=== PATIENT | male | born 1985 | race African-American/Black ===

== ENCOUNTER 2016-08-21 15:56 | Emergency (ER) | payer SELFPAY ==
[~2016-08-21] VITALS: Ht 170.2 cm; Wt 77.1 kg
[2016-08-21] MEDS ORDERED: Norco 5mg/325mg tab PO ONE (16:15)
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
[2016-08-21] MEDS ORDERED: IBUPROFEN600 MG ORAL (18:04)
[2016-08-21] MEDS ORDERED: TRAMADOL HCL50 MG ORAL (18:04)
[2016-08-21 18:31] VITALS: BP 115/77
--- NOTE | 2016-08-22 08:54 | Diagnostic Imaging Report ---
Indication: TRAUMA, pain Technique: Spiral acquisitions obtained through the cervical spine. No IV contrast utilized. Multiplanar reconstructions were generated. Total dose length product 321 mGycm. CTDIvol(s) 50 mGy Comparison: None Findings: There is straightening of the normal cervical lordosis. Otherwise normal bony alignment. Vertebral body heights and disc spaces are preserved. No prevertebral soft tissue swelling. No acute fractures. There is unusual finding of an ossification posterior to the tip of the odontoid, within or deep to the posterior atlantoaxial ligament. This is possibly an ununited ossification center. No significant disc bulge or protrusion, spinal stenosis, or neural foraminal stenosis is evident. The included extraspinal soft tissues are unremarkable. 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 Bailey The CT scanner at [facility] is accredited by the [employer] and the scans are performed using protocols designed to limit radiation exposure to as low as reasonably achievable to attain images of sufficient resolution adequate for diagnostic evaluation.
--- NOTE | 2016-08-22 10:22 | Diagnostic Imaging Report ---
Indication: TRAUMA Technique: 3 views of the left shoulder Comparison: none Findings: Rounded ossific densities are seen the expected region of the infraglenoid bursa. No acute fractures. No dislocations. The joint spaces are preserved. 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
--- NOTE | 2016-08-22 11:00 | Diagnostic Imaging Report ---
Indication: TRAUMA Technique: 3 views of the right shoulder Comparison: none Findings: No acute fractures. No dislocations. There is mild degenerative disc narrowing and fairly advanced degenerative proliferative changes of the glenohumeral joint. Impression:Degenerative changes, fairly advanced for age No acute bony trauma
== END 2016-08-21 18:35 | disposition home or self-care (01) ==
LOC: EDBD 15:56 → EMR 18:25
DX: S16.1XXA Strain of muscle, fascia and tendon at neck level, initial encounter (principal); S40.012A Contusion of left shoulder, initial encounter; S40.011A Contusion of right shoulder, initial encounter; V43.62XA Car passenger injured in collision with other type car in traffic accident, initial encounter; Y92.9 Unspecified place or not applicable
CPT/HCPCS: 72125; 99284